=== PATIENT | female | born 1980 | race Caucasian/White ===

== ENCOUNTER 2018-04-10 16:05 | Emergency (ER) | payer OTHER ==
[~2018-04-10] VITALS: Ht 162.6 cm; Wt 66.7 kg
[2018-04-10 16:09] VITALS: Ht 162.6 cm; Wt 66.7 kg
[2018-04-10 16:48] LABS: BASOPHIL % 0.5 % (0-2); PLATELET COUNT 302 x10^3mcL (130-400); RED CELL DISTRIBUTION WIDTH 13.5 % (11.5-14.5)
[2018-04-10 16:52] LABS: microscopic required? YES; urine erythrocyte NEGATIVE (NEGATIVE)
[2018-04-10 16:59] LABS: CALCIUM 9.2 mg/dL (8.5-10.1); CARBON DIOXIDE 28.7 mmol/L (21-32); CHLORIDE SERUM 104 mmol/L (98-107); CREATININE SERUM 0.5 mg/dL (0.6-1.0); GFR1 > 60 mL/min; GLUCOSE SERUM 78 mg/dL (74-106); POTASSIUM SERUM 4.2 mmol/L (3.5-5.1); SODIUM SERUM 136 mmol/L (136-145)
[2018-04-10 17:03] LABS: ALKALINE PHOSPHATASE 82 U/L (46-116); ALT/SGPT 22 U/L (14-59); AMYLASE 70 U/L (25-115); AST/SGOT 11 U/L (15-37); BILIRUBIN TOTAL 0.22 mg/dL (0.20-1.00); LIPASE 90 IU/L (73-393); TOTAL PROTEIN, SERUM 6.8 g/dL (6.4-8.2)
[2018-04-10 18:54] VITALS: BP 115/67
== END 2018-04-10 18:55 | disposition home or self-care (01) ==
LOC: ED 16:05
PROVIDERS: Emergency Medicine
DX: O26.891 Other specified pregnancy related conditions, first trimester (principal); Z3A.12 12 weeks gestation of pregnancy; R10.30 Lower abdominal pain, unspecified; Z31.82 Encounter for Rh incompatibility status
CPT/HCPCS: 36415; J7030